=== PATIENT | female | born 1985 | race Caucasian/White ===

== ENCOUNTER 2018-02-25 12:59 | Inpatient (IN) | payer OTHER ==
[~2018-02-25] VITALS: Ht 162.6 cm; Wt 68.5 kg
[2018-02-25] MEDS ORDERED: PRENATAL 19 CH1 EACH (13:09)
[2018-02-25] MEDS ORDERED: PROGESTERONE200 MG (13:10)
== END 2018-02-27 16:30 | disposition home or self-care (01) | DRG 777 ==
LOC: ER 12:59 → SEC-K 14:49 → O/R 14:49 → SURH 22:58 → O/R 02-26 00:47 → OB/GYN 02-26 14:07
PROVIDERS: Specialist
PROC: 10T20ZZ Resection of Products of Conception, Ectopic, Open Approach (ICD-10-PCS; 2018-02-25)
PROC: BU4CZZZ Ultrasonography of Uterus and Ovaries (ICD-10-PCS; 2018-02-25)
PROC: 0UB50ZZ Excision of Right Fallopian Tube, Open Approach (ICD-10-PCS; principal; 2018-02-25 17:00)
DX: O00.101 Right tubal pregnancy without intrauterine pregnancy (principal)